=== PATIENT | male | born 1955 | race Caucasian/White ===

== ENCOUNTER → 2020-08-09 09:54 | Outpatient (CLI) | payer MEDICARE, SELFPAY ==
--- NOTE | ~2020-08-09 | CT_ITS ---
EXAMINATION: CT lung screening DATE: 08/09/2020 10:08 INDICATION: Personal history of nicotine dependence, current smoker with 30 pack year history TECHNIQUE: Computed tomography (CT) of the chest was performed without intravenous contrast. The dose -length product (DLP) was 236.90 mGy-cm. Automated exposure control and iterative reconstruction tech [employer] were employed. COMPARISON: 04/01/2018 FINDINGS: There are stable 3 mm nodules of the left upper lobe. Previously described groundglass opac ities of the left upper lobe have resolved, likely resolved infection or inflammation. No new pulmona ry nodules are identified. No focal airspace opacities are identified. There is no pleural effusion o r pneumothorax. No pathologically enlarged thoracic lymph nodes are identified. The heart size is nor mal. Calcified coronary artery atherosclerosis is noted. There is mild thoracic spondylosis. Right- IMPRESSION: 1. Lung-RADS category 2: Benign appearance or behavior. Continue annual screening with noncontrast lo w-dose chest CT in 12 months. Reviewed, dictated and finalized at location A. IMPRESSION: 1. Lung-RADS category 2: Benign appearance or behavior. Continue annual screeni ng with noncontrast low-dose chest CT in 12 months.
== END ==
PROVIDERS: Visit Provider Family Medicine
DX: Z12.2 Encounter for screening for malignant neoplasm of respiratory organs (principal); Z87.891 Personal history of nicotine dependence
CPT/HCPCS: G0297